=== PATIENT | male | born 1990 | race Two or more races ===

== ENCOUNTER 2020-05-05 13:23 | Emergency (ER) | payer SELFPAY ==
--- NOTE | 2020-05-05 14:00 | TELE ---
HPI - General Reason For Visit: COVID 19 History Source: Patient Review of Systems - Review of Systems Constitutional: No: Chills, Fever Respiratory: No: Cough, Shortness of Breath Cardiac (ROS): No: Chest Pain - Medical Decision Making 05/05/20 13:59 #1 yo M, no sig hx, called for covid PCR. No sxs. Covid ordered. Pt to proceed to [facility] as instructed. Discharge Diagnosis at time of Disposition: Encounter by telehealth for suspected COVID-19 - Referrals - Patient Instructions - Discharge Disposition: HOME
== END 2020-05-05 19:15 | disposition home or self-care (01) ==
LOC: JVIRT 13:23
DX: Z11.59 Encounter for screening for other viral diseases (principal)
CPT/HCPCS: Q3014-GT; U0003